=== PATIENT | female | born 1960 | race Caucasian/White ===

== ENCOUNTER 2020-09-26 13:20 | Day surgery (SDC) | payer OTHER ==
[2020-09-26] MEDS ORDERED: Depo-Medrol 40 MG/ML IM ONE (13:21)
[2020-09-26] MEDS ORDERED: BUPIVACAINE 0.5% VIAL IJ ONE (13:21)
[2020-09-26] MEDS ORDERED: DIPRIVAN 200 MG/20 ML IV ONE (14:58)
[2020-09-26] MEDS ORDERED: Lactated Ringers 1,000 ML IV ONE (16:30)
--- NOTE | 2020-09-27 11:35 | XRAY ---
9 seconds fluoroscopy time in surgery for injection of the left SI joint.
== END 2020-09-26 15:21 | disposition home or self-care (01) ==
LOC: SDC-PAIN 13:20
PROVIDERS: ATTEND Psychiatry & Neurology Pain Medicine
DX: M46.1 Sacroiliitis, not elsewhere classified (principal); F41.9 Anxiety disorder, unspecified; F32.9 Major depressive disorder, single episode, unspecified; Z79.899 Other long term (current) drug therapy
CPT/HCPCS: 27096; 72020; 77002; G0260; J1030; J2704

== ENCOUNTER 2020-10-17 13:14 | Day surgery (SDC) | payer OTHER ==
[2020-10-17] MEDS ORDERED: Xylocaine 1% Vial 30 ML PF IJ ONE (13:15)
[2020-10-17] MEDS ORDERED: Depo-Medrol 40 MG/ML IM ONE (13:15)
[2020-10-17] MEDS ORDERED: BUPIVACAINE 0.5% VIAL IJ ONE (13:15)
[2020-10-17] MEDS ORDERED: DIPRIVAN 200 MG/20 ML IV ONE (15:53)
[2020-10-17] MEDS ORDERED: Lactated Ringers 1,000 ML IV ONE (17:33)
--- NOTE | 2020-10-18 08:01 | XRAY ---
26 seconds fluoroscopy time in surgery for intra-articular injection of the left hip.
== END 2020-10-17 16:17 | disposition home or self-care (01) ==
LOC: SDC-PAIN 13:14
PROVIDERS: ATTEND Psychiatry & Neurology Pain Medicine
DX: M16.12 Unilateral primary osteoarthritis, left hip (principal); Z79.899 Other long term (current) drug therapy
CPT/HCPCS: 20610; 73501; 77002; J1030; J2001; J2704; Q9966

== ENCOUNTER 2020-11-21 12:16 | Day surgery (SDC) | payer OTHER ==
[2020-11-21] MEDS ORDERED: Xylocaine 1% Vial 30 ML PF IJ ONE (12:17)
[2020-11-21] MEDS ORDERED: Depo-Medrol 40 MG/ML IM ONE (12:17)
[2020-11-21] MEDS ORDERED: Decadron 4 MG INJ IV ONE (12:17)
[2020-11-21] MEDS ORDERED: BUPIVACAINE 0.5% VIAL IJ ONE (12:17)
[2020-11-21] MEDS ORDERED: DIPRIVAN 200 MG/20 ML IV ONE (13:40)
[2020-11-21] MEDS ORDERED: Lactated Ringers 1,000 ML IV ONE (13:49)
--- NOTE | 2020-11-21 17:03 | XRAY ---
13 seconds of fluoroscopy was used in surgery for a left piriformis muscle injection.
--- NOTE | 2020-11-21 17:03 | XRAY ---
9 seconds of fluoroscopy was used in surgery for a greater trochanter bursa injection of the left hip.
--- NOTE | 2020-11-23 09:17 | XRAY ---
Indication: Left piriformis injection. Intraoperative fluoroscopy was provided for 13 seconds. A single digital spot image submitted for interpretation demonstrates the posterior needle tip projected over the expected left piriformis muscle. A small amount of contrast has been injected for needle tip placement. Correlate with intraoperative findings/report.
--- NOTE | 2020-11-23 09:18 | XRAY ---
Indication: Left hip greater trochanteric bursa injection. Intraoperative fluoroscopy was provided for 9 seconds. A single digital spot image submitted for interpretation demonstrates the posterior needle tip at the lateral margin of the greater trochanter. Some contrast has been injected for needle tip placement. Correlate with intraoperative findings/port.
== END 2020-11-21 14:10 | disposition home or self-care (01) ==
LOC: SDC-PAIN 12:16
PROVIDERS: ATTEND Psychiatry & Neurology Pain Medicine
DX: M70.61 Trochanteric bursitis, right hip (principal); Z79.899 Other long term (current) drug therapy
CPT/HCPCS: 20552; 20610; 72020; 73501; 77002; J1030; J1100; J2001; J2704; Q9966

== ENCOUNTER 2022-05-24 15:06 | Emergency (ER) | payer OTHER ==
[2022-05-24 15:33] VITALS: BP 166/99
--- NOTE | 2022-05-24 15:39 | ERPHSYRPT ---
- History of Present Illness Time Seen by Provider: 05/24/22 15:36 Source: patient Exam Limitations: no limitations Patient Subjective Stated Complaint: Hasn't been able to urinate today Triage Nursing Assessment: Pt brought self to the ER, hypertensive, tachycardic, rates overall pain as 6-7/10, high anxiety, placed in and out robles to remove urine and got 300 ml's out, pt is depressed crying about loss of father and this past year, states that she stays in bed 23 hours a day, had back surgery in February, pulses normal, states that she woke up with her legs shaking Physician History: Hasn't been able to urinate today pt is depressed crying about loss of father and this past year, states that she stays in bed 23 hours a day, had back surgery in February, Timing/Duration: today Severity: mild Associated Symptoms: other (feeling depressed ) Allergies/Adverse Reactions: No Known Drug Allergies Allergy (Verified 05/24/22 15:33) Home Medications: Duloxetine HCl 30 mg [Cymbalta 30 MG Capsule] 30 mg PO TID 05/24/22 [History] Gabapentin [Neurontin ] 100 mg PO TID 05/24/22 [History] clonazePAM [Clonazepam] 1 mg PO UD 05/24/22 [History] Travel Risk - International Travel Have you traveled outside of the country in past 3 weeks: No - Coronavirus Screening Are you exhibiting any of the following symptoms?: No Close contact with a COVID-19 positive Pt in past 14-21 Days: No - Vaccine Status Have you recieved a Covid-19 vaccination: Yes 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 - Vaccination Dates Date of 2cond Vaccination (if applicable): 2020 Dates if Unknown: 2020 - Review of Systems Constitutional: No Fever, No Chills Eyes: No Symptoms Ears, Nose, & Throat: No Symptoms Respiratory: No Cough, No Dyspnea Cardiac: No Chest Pain, No Edema, No Syncope Abdominal/Gastrointestinal: No Abdominal Pain, No Nausea, No Vomiting, No Diarrhea Genitourinary Symptoms: Urinary Retention, No Dysuria Musculoskeletal: No Back Pain, No Neck Pain Skin: No Rash Neurological: No Dizziness, No Focal Weakness, No Sensory Changes Psychological: No Symptoms Endocrine: No Symptoms All Other Systems: Reviewed and Negative - Past Medical History Neurological History: No Pertinent History Cardiac History: No Pertinent History Respiratory History: No Pertinent History Endocrine Medical History: No Pertinent History Musculoskeletal History: Arthritis - Past Surgical History Past Surgical History: Yes Female Surgical History: Hysterectomy Other Surgical History: back surgery - Social History Smoking Status: Former smoker Exposure to second hand smoke: No Drug Use: none Patient Lives Alone: No - Nursing Vital Signs Nursing Vital Signs: Initial Vital Signs Temperature 98.3 F 05/24/22 15:14 Pulse Rate 116 H 05/24/22 15:14 Blood Pressure 166/99 05/24/22 15:14 O2 Sat by Pulse Oximetry 96 05/24/22 15:14 Pain Scale Pain Intensity 6 - Physical Exam General Appearance: no apparent distress, alert Eye Exam: PERRL/EOMI, eyes nml inspection Ears, Nose, Throat Exam: normal ENT inspection, TMs normal, pharynx normal, moist mucous membranes Neck Exam: normal inspection, non-tender, supple, full range of motion Respiratory Exam: normal breath sounds, lungs clear, No respiratory distress Cardiovascular Exam: regular rate/rhythm, normal heart sounds, normal peripheral pulses Gastrointestinal/Abdomen Exam: soft, normal bowel sounds, No tenderness, No mass Back Exam: normal inspection, normal range of motion, No CVA tenderness, No vertebral tenderness Extremity Exam: normal inspection, normal range of motion, pelvis stable Neurologic Exam: alert, oriented x 3, cooperative, normal mood/affect, nml cerebellar function, nml station & gait, sensation nml, other (depressed mood), No motor deficits Skin Exam: normal color, warm, dry, No rash Lymphatic Exam: No adenopathy SpO2 Interpretation: normal SpO2: 96 O2 Delivery: Room Air - Course Nursing assessment & vital signs reviewed: Yes Ordered Tests: Active Orders 24 hr Category Date Time Status CULTURE,URINE Stat Lab 05/24/22 15:27 Ordered UA W/RFX UR CULTURE Stat Lab 05/24/22 15:33 Completed Lab/Rad Data: Laboratory Results 05/24/22 Range/Units 15:33 Urine Color Yellow (Yellow) Urine Appearance Clear (Clear) Urine pH 5.5 (4.6-8.0) Ur Specific Villas >=1.030 A (1.005-1.030) Urine Protein Negative (Negative) Urine Glucose (UA) Negative (Negative) mg/dL Urine Ketones Negative (Negative) Urine Blood Negative (Negative) Urine Nitrite Negative (Negative) Urine Bilirubin Negative (Negative) Urine Urobilinogen 0.2 (0.2) mg/dL Ur Leukocyte Esterase Negative (Negative) U Hyaline Cast (Auto) 3-5 A (0-2) /LPF Urine Microscopic RBC 0-2 (0-5) /HPF Urine Microscopic WBC 3-5 (0-5) /HPF Ur Epithelial Cells Rare (None Seen) /HPF Urine Bacteria Many A (None Seen) /HPF Urine Culture Reflexed ORDERED SEPARATELY (NO) - Progress Progress: improved Counseled pt/family regarding: lab results, diagnosis Medical Desision Making - Discussion of managment Reviewed:: Test results, Need for additional workup Agreed on:: Treatment plan - Diagnostic Testing Diagnostic test were ordered, analyzed, and reviewed by me: Yes Radiological Interpretation: Reviewed by me - Risk of complications Low Risk: Low risk of morbidity from additional dx testing or treatment - Departure Departure Disposition: Home Clinical Impression: Acute urinary retention, Abnormal grief reaction Condition: Stable Critical Care Time: No Referrals: JAYDEN LEY FNP [Primary Care Provider] - Follow up/PCP as directed Instructions: Urinary Retention (DC), Dealing With , Adult, Depression, Adult ED Additional Instructions: Discharge/Care Plan CONCHITA MARTIN was seen on 05/24/22 in the Emergency Room. The patient was counseled regarding Diagnosis,Lab results, Imaging studies, need for follow up and when to return to the Emergency Room. Prescriptions given: Discharge Note I have spoken with the patient and/or caregivers. I have explained the patient's condition, diagnosis and treatment plan based on the information available to me at this time. I have answered the patient's and/or caregiver's questions and addressed any concerns. The patient and/or caregivers have as good understanding of the patient's diagnosis, condition and treatment plan as can be expected at this point. The vital signs have been stable. The patient's condition is stable and appropriate for discharge from the emergency department. The patient will pursue further outpatient evaluation with the primary care calista sician or other designated or consulting physician as outlined in the discharge instructions. The patient and/or caregivers are agreeable to this plan of care and follow-up instructions have been explained in detail. The patient and/or caregivers have received these instruction. The patient/and or caregivers are aware that any significant change in condition or worsening of symptoms should prompt an immediate return to this or the closest emergency department or call 911. CONCHITA MARTIN was seen on 05/24/22 n the Emergency Room. At that time you were treated for an emergent condition, during your visit Laboratory, Radiology and/or other procedures may have been ordered. It is very important that you follow-up with your Primary Care Physician GREG MAYS within the next 24- 48 hours to review your Emergency Room visit and the final results of testing that was ordered. Some test results such as Urine Cultures, Blood Cultures, and other cultures if ordered will not be finalized for 24-48 hours. If you do not have a Primary Care Provider please call the medical records department at [phone] ext [phone] to obtain a copy of your results or you may sign into our patient portal to obtain these results by visiting us @ [email or web address] and completing the following steps: 1. Click on the Patient Portal link 2. Click the Patient Self Enrollment Link to complete the enrollment form and entering your 3. Once the enrollment form is completed you will receive an email with a temporary ID and password at the email address you provided. 4. Next choose a user name and password. Your user name must be at least 4 characters long and your password must be at least 4 characters long. 5. Choose a security question from the list and provide your answer to the question. If you already have signed into the Health Portal you may access your Health Care Information 27/10 by the following steps: 1. Login to our website @ [email or web address] 2. Enter your original user name and password. FAQS The [facility] Health Portal is an online tool that contains your Lab Results, Radiology Reports, Visit History, Discharge Instructions and Health Summary Lab and Radiology Results will not be available for 72 hours on the portal. The Portal is a secure site, passwords are encryted and URLs are re-written so they cannot be copied and pasted. You and authorized family members are the only ones who can access your Portal. Also there is a timeout feature that protects your information if you leave the Portal page open. If you have technical difficulty please use the Contact Us link on the page this will allow you to submit any questions you have regarding the Portal or you may contact the Medical Record Department at [phone] ext [phone]. Prescriptions: Tamsulosin HCl 0.4 mg [Flomax 0.4 MG] 0.4 mg PO DAILY #14 cap
[2022-05-24 15:44] LABS: Appearance Clear (Clear); Bilirubin Negative (Negative); Blood Negative (Negative); Glucose, Urine Negative (Negative); Ketones Negative (Negative); Leukocyte Esterase Negative (Negative); Nitrite Negative (Negative); Ph 5.5 (4.6-8.0); Protein,Urine Dip Negative (Negative); Specific Gravity >=1.030 (1.005-1.030); Urobilinogen 0.2 mg/dL (0.2)
[2022-05-24 15:59] LABS: Bacteria Many /HPF (None Seen); Epithelial Cells Rare /HPF (None Seen); RBC 0-2 /HPF (0-5)
[2022-05-24 16:07] LABS: ADD URINE CULTURE? ORDERED SEPARATELY (NO)
[2022-05-24 16:37] VITALS: PULSE 88; O2SAT 98
== END 2022-05-24 16:37 | disposition home or self-care (01) ==
LOC: ED 15:06
DX: R33.9 Retention of urine, unspecified (principal); F43.20 Adjustment disorder, unspecified; Z63.4 Disappearance and death of family member; Z79.899 Other long term (current) drug therapy
CPT/HCPCS: 81001; 87086; 99282